=== PATIENT | male | born 1980 | race Caucasian/White ===

== ENCOUNTER 2022-02-20 03:07 | Inpatient (IN) | payer MEDICARE, MEDICAID ==
[~2022-02-20] VITALS: Ht 172.7 cm; Wt 113.9 kg
[~2022-02-20 03:07] MED LIST: BENZ1TAB70 PO; HALO100V4 IM; MIRT-149 PO; OLAN20TA5 PO
[2022-02-20 03:31] LABS: BASOPHILS % (AUTO) 0.4 % (0.0-2.0); EOSINOPHILS % (AUTO) 2.6 % (1.0-6.0); HEMATOCRIT 43.3 % (41-53); HEMOGLOBIN 14.1 g/dL (13.5-17.5); LYMPHOCYTES # (AUTO) 1.6 K/uL (1.0-4.8); LYMPHOCYTES % (AUTO) 19.8 % (22.0-44.0); MEAN CORPUSCULAR HEMOGLOBIN 28.1 pg (26.0-34.0); MEAN CORPUSCULAR HGB CONC 32.7 G/dL (31.0-37.0); MEAN CORPUSCULAR VOLUME 86 fL (80-100); MONOCYTES # (AUTO) 0.8 K/uL (0.1-1.0); MONOCYTES % (AUTO) 9.6 % (2.0-9.0); NEUTROPHILS # (AUTO) 5.4 K/uL (1.8-7.7); NEUTROPHILS % (AUTO) 67.6 % (40.0-70.0); PLATELET COUNT (AUTO) 270 K/uL (150-450); RED BLOOD CELL COUNT(AUTO) 5.04 MIL/uL (4.50-5.90); RED CELL DISTRIBUTION WIDTH 14.4 % (11.5-14.5)
[2022-02-20 03:39] LABS: ANION GAP 6 mmol/L (8-16); CALCIUM, TOTAL 9.1 mg/dL (8.8-10.5); CARBON DIOXIDE 30 mmol/L (22-29); CHLORIDE 101 mmol/L (98-107); GLUCOSE,RANDOM 126 mg/dL (70-110); POTASSIUM 4.3 mmol/L (3.5-5.1); SODIUM SERUM 137 mmol/L (136-145); UREA NITROGEN, BLOOD 13 mg/dL (7-18)
[2022-02-20 03:44] LABS: ALANINE AMINOTRANSFERASE 39 U/L (12-78); ALBUMIN 3.8 g/dL (3.4-5.0); ALKALINE PHOSPHATASE 76 U/L (46-116); ASPARTATE AMINOTRANSFERASE 16 U/L (15-37); BILIRUBIN,TOTAL 0.7 mg/dL (0.1-1.0); TOTAL PROTEIN, SERUM 7.4 g/dL (6.4-8.2)
[2022-02-20 03:47] LABS: GLOMERULAR FILTR. RATE CALC > 60 mL/min (>60)
[2022-02-20] MEDS ORDERED: DiphenhydrAMINE HCL 25 MG CAPSULE PO ONE (04:30)
[2022-02-20] MEDS ORDERED: HALOPERIDOL 5 MG TABLET PO ONE (04:30)
[2022-02-20] MEDS ORDERED: LORazepam 2 MG TABLET PO ONE (04:30)
[2022-02-20 04:49] LABS: AMPHET/METH SCREEN,URINE NEGATIVE (NEGATIVE); BARBITURATE SCREEN, URINE NEGATIVE (NEGATIVE); BENZODIAZEPINES SCREEN,URINE NEGATIVE (NEGATIVE); CANNABINOID SCREEN,URINE NEGATIVE (NEGATIVE); COCAINE SCREEN,URINE NEGATIVE (NEGATIVE); METHADONE SCREEN, URINE NEGATIVE (NEGATIVE); OPIATE SCREEN,URINE NEGATIVE (NEGATIVE)
[2022-02-20 04:50] LABS: PHENCYCLIDINE SCREEN,URINE NEGATIVE (NEGATIVE)
[2022-02-20 04:59] LABS: COVID AG,FIA SOURCE NASOPHARYNGEAL
[2022-02-20 07:24] LABS: APPEARANCE,URINE CLEAR (CLEAR); BILIRUBIN,URINE NEGATIVE (NEGATIVE); GLUCOSE, URINE (UA) NEGATIVE (NEGATIVE); KETONES,URINE NEGATIVE (NEGATIVE); LEUKOCYTE ESTERASE ,URINE NEGATIVE (NEGATIVE); NITRATE,URINE NEGATIVE (NEGATIVE); OCCULT BLOOD,URINE NEGATIVE (NEGATIVE); PH,URINE 5.5 (5.0-8.0); PROTEIN,URINE NEGATIVE (NEGATIVE); SPECIFIC GRAVITIY, URINE 1.003 (1.003-1.030); UROBILINOGEN,URINE <=1.0 mg/dL (<=1.0)
[2022-02-20] MEDS: HALOPERIDOL 5 MG TABLET PO PRN ×2 (08:52→20:25)
[2022-02-20] MEDS: LORazepam 2 MG TABLET PO PRN ×2 (08:52→20:25)
[2022-02-20] MEDS ORDERED: SERT-439 PO (18:58)
[2022-02-20] MEDS ORDERED: HALO100V36 IM (18:58)
[2022-02-20] MEDS ORDERED: BENZ2TAB76 PO (18:58)
[2022-02-20] MEDS ORDERED: HALO10TA21 PO (18:58)
[2022-02-20] MEDS ORDERED: INFLUENZA VIRUS VACCINE QVS 2022-23 (6MO+)/PF 60 MCG/0.5 ML SYRINGE IM. ONE (19:15)
[2022-02-20 20:14] VITALS: BP 123/79
[2022-02-20] MEDS: ZOLPIDEM TARTRATE 10 MG TABLET PO PRN (20:25)
[2022-02-21] MEDS: HALOPERIDOL 5 MG TABLET PO PRN ×2 (03:18→17:07)
[2022-02-21] MEDS: LORazepam 2 MG TABLET PO PRN ×3 (03:18→21:13)
[2022-02-21] MEDS ORDERED: ALBUTEROL SULFATE HFA 90 MCG/PUFF 8 GM INHALER IH PRN (06:00)
[2022-02-21] MEDS ORDERED: OMEPRAZOLE 20 MG CAPSULE PO PRN (06:00)
[2022-02-21] MEDS ORDERED: ONDANSETRON HCL 4 MG TABLET PO PRN (06:00)
[2022-02-21] MEDS ORDERED: MAGNESIUM HYDROXIDE SUSPENSION 30 ML UDCUP PO PRN (06:00)
[2022-02-21] MEDS ORDERED: ACETAMINOPHEN 325 MG TABLET PO PRN (06:00)
[2022-02-21] MEDS ORDERED: BENZOCAINE/MENTHOL LOZENGE PO PRN (06:00)
[2022-02-21] MEDS ORDERED: LOPERAMIDE HCL 2 MG CAPSULE PO PRN (06:00)
[2022-02-21] MEDS ORDERED: DOCUSATE SODIUM 100 MG CAPSULE PO PRN (06:00)
[2022-02-21] MEDS ORDERED: MAG HYDROX/AL HYDROX/SIMETH ES 30 ML SUSPENSION UDCUP PO PRN (06:00)
[2022-02-21] MEDS ORDERED: CloNIDine HCL 0.1 MG TABLET PO PRN (06:00)
[2022-02-21] MEDS ORDERED: IBUPROFEN 600 MG TABLET PO PRN (06:00)
[2022-02-21] MEDS ORDERED: BACITRACIN 28 GM OINTMENT TP PRN (06:00)
[2022-02-21] MEDS ORDERED: PETROLATUM,WHITE 28 GM JELLY TP PRN (06:00)
[2022-02-21 09:45] VITALS: BP 133/60
[2022-02-21] MEDS ORDERED: HALOPERIDOL DECANOATE 100 MG/ML VIAL IM SCH (10:00)
[2022-02-21] MEDS: RisperiDONE 2 MG TABLET PO SCH (17:07)
[2022-02-21 20:00] VITALS: BP 116/72
[2022-02-21] MEDS: MIRTAZAPINE 30 MG TABLET PO SCH (20:27)
[2022-02-21] MEDS: ZOLPIDEM TARTRATE 10 MG TABLET PO PRN (20:27)
[2022-02-22] MEDS: LORazepam 2 MG TABLET PO PRN ×3 (03:05→20:44)
[2022-02-22] MEDS: HALOPERIDOL 5 MG TABLET PO PRN ×3 (03:05→20:44)
[2022-02-22 08:50] VITALS: BP 126/85
[2022-02-22] MEDS: RisperiDONE 2 MG TABLET PO SCH (16:21)
[2022-02-22] MEDS: ZOLPIDEM TARTRATE 10 MG TABLET PO PRN (20:44)
[2022-02-22] MEDS: MIRTAZAPINE 30 MG TABLET PO SCH (20:44)
[2022-02-22 21:34] VITALS: BP 120/80
[2022-02-23 09:51] VITALS: BP 130/64
[2022-02-23] MEDS: LORazepam 2 MG TABLET PO PRN (16:33)
[2022-02-23] MEDS: HALOPERIDOL 5 MG TABLET PO PRN (16:33)
[2022-02-23] MEDS: RisperiDONE 2 MG TABLET PO SCH (16:33)
[2022-02-23] MEDS: ZOLPIDEM TARTRATE 10 MG TABLET PO PRN (20:19)
[2022-02-23] MEDS: MIRTAZAPINE 30 MG TABLET PO SCH (20:19)
[2022-02-23 20:48] VITALS: BP 115/78
[2022-02-24 08:28] VITALS: BP 118/80
[2022-02-24] MEDS: RisperiDONE 2 MG TABLET PO SCH (17:07)
[2022-02-24] MEDS: MIRTAZAPINE 30 MG TABLET PO SCH (20:08)
[2022-02-24] MEDS: ZOLPIDEM TARTRATE 10 MG TABLET PO PRN (20:17)
[2022-02-24 20:50] VITALS: BP 125/79
[2022-02-25 08:38] VITALS: BP 132/78
[2022-02-25] MEDS: LORazepam 2 MG TABLET PO PRN ×2 (16:31→20:36)
[2022-02-25] MEDS: RisperiDONE 2 MG TABLET PO SCH (16:31)
[2022-02-25] MEDS: HALOPERIDOL 5 MG TABLET PO PRN ×2 (16:31→20:36)
[2022-02-25] MEDS: MIRTAZAPINE 30 MG TABLET PO SCH (20:36)
[2022-02-25] MEDS: ZOLPIDEM TARTRATE 10 MG TABLET PO PRN (20:36)
[2022-02-25 20:51] VITALS: BP 126/85
[2022-02-26 08:02] LABS: GLUCOMETER DEV NAME(LOC) POC.BV
[2022-02-26 08:41] VITALS: BP 142/83
[2022-02-26] MEDS: RisperiDONE 2 MG TABLET PO SCH (17:07)
[2022-02-26 20:33] VITALS: BP 125/70
[2022-02-26] MEDS: ZOLPIDEM TARTRATE 10 MG TABLET PO PRN (21:04)
[2022-02-26] MEDS: MIRTAZAPINE 30 MG TABLET PO SCH (21:04)
[2022-02-27 09:16] VITALS: BP 129/96
== END 2022-02-27 13:00 | disposition left against medical advice (07) | DRG 885 ==
LOC: EMS 03:09 → B3A 15:33
PROVIDERS: ADMIT Psychiatry & Neurology Child & Adolescent Psychiatry; ATTEND Psychiatry & Neurology Child & Adolescent Psychiatry
DX: F20.0 Paranoid schizophrenia (principal); Z20.822 Contact with and (suspected) exposure to COVID-19; F32.A Depression, unspecified; K59.00 Constipation, unspecified; G47.00 Insomnia, unspecified; E66.9 Obesity, unspecified; F41.9 Anxiety disorder, unspecified; Z91.199 Patient's noncompliance with other medical treatment and regimen due to unspecified reason; Z68.38 Body mass index [BMI] 38.0-38.9, adult
CPT/HCPCS: 80053; 80307; 81003; 85025; 99285; G0480; J1631